=== PATIENT | female | born 1980 | race Caucasian/White ===

== ENCOUNTER 2016-05-14 03:09 | Emergency (ER) | payer MEDICAID ==
--- NOTE | 2016-05-14 03:32 | EDPHY ---
H & P Stated Complaint: SI - Personal History LMP (Females 10-55): 1-7 Days Ago Current Tetanus/Diphtheria Vaccine: Unsure Current Tetanus Diphtheria and Acellular Pertussis (TDAP): Unsure - Medical/Surgical History Hx Asthma: No Hx Chronic Respiratory Disease: No Hx Diabetes: No Hx Cardiac Disease: No Hx Renal Disease: No Hx Cirrhosis: No Hx Alcoholism: No Hx HIV/AIDS: No Hx Splenectomy or Spleen Trauma: No Other PMH: endometriosis, FRAN knee surgery, kidney stones, depression, anxiety, PTSD, borderline - Social History Smoking Status: Current every day smoker <Deven Berman - Last Filed: 05/14/16 07:09> <Kelsea Mane - Last Filed: 05/14/16 14:28> <Tabatha Morillo - Last Filed: 05/14/16 21:32> <Denice Rock - Last Filed: 05/15/16 06:50> <Morgan Brooks - Last Filed: 05/15/16 08:00> <Haydee Marroquin - Last Filed: 05/15/16 23:02> Time Seen by Provider: 05/14/16 03:14 HPI/ROS: Chief complaint: Suicidal HPI: 36-year-old woman being brought in by police department on a mental health hold. Patient states she was just discharged from [facility] yesterday evening. Patient states that she immediately began feeling suicidal. She states that there is some discussion with staff at [facility] about doing electroconvulsive therapy on her but then she was discharged to home. Patient was living in a domestic violence care home but is unable to go back there is now until she has been cleared for being suicidal. She currently is feeling hopeless with no place to go and has a plan to take all of her pills. Denies any ingestions. Is complaining of some mild nonproductive cough. Also complains some mild left ankle pain but she is ambulating without any difficulty. ROS: 10 point Review of Systems is negative except as noted in the HPI. Past medical history: Major depression Physical exam: Gen: Awake, Alert, flattened affect HEENT: Nose: no rhinorrhea Eyes: PERRLA, EOMI Mouth: Moist mucosa Neck: Supple, no JVD Chest: nontender, mild expiratory wheeze, no focal rales or rhonchi Heart: S1, S2 normal, no murmur Abd: Soft, non-tender, no guarding Back: no CVA tenderness, no midline tenderness Ext: no edema, mild left ankle tenderness just inferior to the medial malleolus. She is ambulating multiple steps without any difficulty. Skin: no rash Neuro: CN II-XII intact, Sensation grossly intact, Strength 5/5 in bilateral upper and lower extremities (Deven Berman) Constitutional: Initial Vital Signs Temperature (C) 36.9 C 05/14/16 03:22 Heart Rate 112 H 05/14/16 03:22 Respiratory Rate 16 05/14/16 03:22 Blood Pressure 127/92 H 05/14/16 03:22 O2 Sat (%) 93 05/14/16 03:22 O2 Delivery Mode Room Air Allergies/Adverse Reactions: aspirin Allergy (Verified 05/14/16 03:21) hydroxyzine HCl [From Vistaril] Allergy (Verified 05/14/16 03:21) hydroxyzine pamoate [From Vistaril] Allergy (Verified 05/14/16 03:21) latex Allergy (Verified 05/14/16 03:21) Home Medications: Medication Instructions Recorded Aripiprazole [Abilify] 7.5 mg PO DAILY 05/14/16 Gabapentin [Neurontin] 600 mg PO 08,11,14,17,20,23 05/14/16 MIRTAZAPINE [Remeron 7.5 mg] 7.5 mg PO HS 05/14/16 Methylphenidate HCl [Ritalin 20mg 20 mg PO TID@08,12,17 05/14/16 (*)] Penicillin V Potassium 500 mg PO TID 7 Days 05/14/16 Pregabalin [LYRICA] 100 mg PO TID@08,12,22 05/14/16 buPROPion XL [Wellbutrin Xl] 450 mg PO DAILY 05/14/16 clonazePAM [Klonopin (*)] 0.5 mg PO TID PRN 05/14/16 oxyCODONE/APAP 5/325 [Percocet 1 tab PO Q6 PRN 05/14/16 5/325 (*)] Medical Decision Making <Deven Berman - Last Filed: 05/14/16 07:09> <Feldhaus,Kelsea M - Last Filed: 05/14/16 14:28> <IliaTabatha S - Last Filed: 05/14/16 21:32> <Denice Rock - Last Filed: 05/15/16 06:50> <Morgan Brooks E - Last Filed: 05/15/16 08:00> <Haydee Marroquin S - Last Filed: 05/15/16 23:02> ED Course/Re-evaluation: Patient here after being released from [facility]. Patient's: To be suicidal with intent take her medications. Feels that she is unsafe to be discharged from [facility]. She has mild ankle tenderness but is ambulating and no evidence of fracture at this time. Also has a mild cough but no focal rales or rhonchi. Pt medically cleared. Urine tox noted positive for benzos, opiates, and marijuana. Awaiting mental health evaluation. Patient is on M1 hold by police. 0700 patient signed out to Dr. Mane pending mental health evaluation. ( Deven Berman) The patient was singed out to me by Dr. Berman at shift change. Mental health evaluation is pending. Patient was evaluated by mental health. She is agreeable to go to a CSU. She is on a mental health hold. 2:15 p.m.: The patient complains of left ankle pain and tooth pain. Patient rolled her left ankle. She states swelling has improved since last night. On exam she has tenderness to inferior to lateral malleoli. Tenderness at head of 5th metatarsal. Plan to wrap in CHAIM bandage. Pain to posterior right molar. She only has 1 molar on the bottom right. Her back last molar has decay. She has tenderness to percussion. No abscess. Patient was given penicillin 500 mg. She was written a script for penicillin 500 mg 3 times a day for the next 7 days. She may also take [place] as needed for severe tooth pain and ibuprofen for moderate pain. The patient was signed out to Dr. Joseph at shift change. Patient will go to CSU. Please note: Pharmacy has reconcile the patient's meds and she has been started on her psychiatric medications. (Kelsea Mane) 9pm: I assumed care from 9-11pm. Pt cooperative. Signed over to Dr. Rock at shift change. (Tabatha Morillo) 6:50 a.m.- The patient has been stable throughout the course of my shift and has been mostly sleeping. She is awaiting placement at a crisis stabilization unit. She will be signed out to the oncoming provider Dr. Brooks. (Denice Rock) Patient's care transferred to mt at 7:00 a.m.. The patient is awaiting placement with Psychiatry. She is currently sleeping. (Morgan Brooks) 1500: The patient is signed out to mt at change of shift by Dr. Morgan Brooks. Went evaluated the patient. She was stable with no new complaints. 2300: The patient is signed out to Dr. Rock at change of shift. Pt is stable. (Haydee Marroquin) - Data Points Laboratory Results: Laboratory Results 05/14/16 03:35 05/14/16 03:35 Medications Given: Discontinued Medications Aripiprazole (Abilify) 7.5 mg PO EDNOW ONE Stop: 05/14/16 13:38 Last Admin: 05/14/16 14:45 Dose: 7.5 mg Bupropion HCl (Wellbutrin Xl) 450 mg PO EDNOW ONE Stop: 05/14/16 13:41 Last Admin: 05/14/16 14:45 Dose: 450 mg Bupropion HCl (Wellbutrin Xl) 450 mg PO EDNOW ONE Stop: 05/15/16 09:19 Last Admin: 05/15/16 09:56 Dose: 450 mg Clonazepam (Klonopin) 0.5 mg PO EDNOW ONE Stop: 05/14/16 19:09 Last Admin: 05/14/16 19:42 Dose: 0.5 mg Clonazepam (Klonopin) 0.5 mg PO EDNOW ONE Stop: 05/15/16 02:02 Last Admin: 05/15/16 02:05 Dose: 0.5 mg Clonazepam (Klonopin) 0.5 mg PO EDNOW ONE Stop: 05/15/16 20:02 Last Admin: 05/15/16 20:19 Dose: 0.5 mg Gabapentin (Neurontin) 600 mg PO EDNOW ONE Stop: 05/14/16 13:39 Last Admin: 05/14/16 14:45 Dose: 600 mg Gabapentin (Neurontin) 600 mg PO EDNOW ONE Stop: 05/14/16 14:01 Last Admin: 05/14/16 14:46 Dose: 600 mg Gabapentin (Neurontin) 600 mg PO EDNOW ONE Stop: 05/14/16 17:05 Last Admin: 05/14/16 17:44 Dose: 600 mg Gabapentin (Neurontin) 600 mg PO EDNOW ONE Stop: 05/14/16 22:08 Last Admin: 05/14/16 23:05 Dose: 600 mg Gabapentin (Neurontin) 600 mg PO EDNOW ONE Stop: 05/15/16 09:19 Last Admin: 05/15/16 09:56 Dose: 600 mg Gabapentin (Neurontin) 600 mg PO EDNOW ONE Stop: 05/15/16 10:01 Last Admin: 05/15/16 10:39 Dose: Not Given Gabapentin (Neurontin) 1,200 mg PO EDNOW ONE Stop: 05/15/16 12:03 Last Admin: 05/15/16 12:30 Dose: 1,200 mg Gabapentin (Neurontin) 1,200 mg PO EDNOW ONE Stop: 05/15/16 12:31 Last Admin: 05/15/16 12:30 Dose: Not Given Gabapentin (Neurontin) 600 mg PO EDNOW ONE Stop: 05/15/16 16:24 Last Admin: 05/15/16 17:19 Dose: 600 mg Gabapentin (Neurontin) 600 mg PO EDNOW ONE Stop: 05/15/16 17:31 Last Admin: 05/15/16 17:30 Dose: 600 mg Gabapentin (Neurontin) 600 mg PO EDNOW ONE Stop: 05/15/16 20:02 Last Admin: 05/15/16 20:19 Dose: 600 mg Ibuprofen (Motrin) 600 mg PO EDNOW ONE Stop: 05/14/16 14:20 Last Admin: 05/14/16 14:46 Dose: 600 mg Ibuprofen (Motrin) 600 mg PO EDNOW ONE Stop: 05/15/16 00:18 Last Admin: 05/15/16 00:53 Dose: 600 mg Ibuprofen (Motrin) 600 mg PO EDNOW ONE Stop: 05/15/16 12:04 Last Admin: 05/15/16 12:30 Dose: 600 mg Methylphenidate HCl (Ritalin) 20 mg PO EDNOW ONE Stop: 05/14/16 13:39 Last Admin: 05/14/16 14:46 Dose: 20 mg Methylphenidate HCl (Ritalin) 20 mg PO EDNOW ONE Stop: 05/14/16 17:05 Last Admin: 05/14/16 17:45 Dose: 20 mg Methylphenidate HCl (Ritalin) 20 mg PO EDNOW ONE Stop: 05/15/16 22:10 Last Admin: 05/14/16 23:05 Dose: 20 mg Methylphenidate HCl (Ritalin) 20 mg PO EDNOW ONE Stop: 05/15/16 09:19 Last Admin: 05/15/16 09:57 Dose: 20 mg Methylphenidate HCl (Ritalin) 20 mg PO EDNOW ONE Stop: 05/15/16 12:03 Last Admin: 05/15/16 12:30 Dose: 20 mg Mirtazapine (Remeron) 7.5 mg PO EDNOW ONE Stop: 05/15/16 00:17 Last Admin: 05/15/16 00:53 Dose: 7.5 mg Oxycodone/Acetaminophen (Percocet 5/325) 1 tab PO EDNOW ONE Stop: 05/14/16 16:14 Last Admin: 05/14/16 16:31 Dose: 1 tab Oxycodone/Acetaminophen (Percocet 5/325) 1 tab PO EDNOW ONE Stop: 05/14/16 22:08 Last Admin: 05/14/16 23:05 Dose: 1 tab Oxycodone/Acetaminophen (Percocet 5/325) 1 tab PO EDNOW ONE Stop: 05/15/16 09:23 Last Admin: 05/15/16 09:57 Dose: 1 tab Oxycodone/Acetaminophen (Percocet 5/325) 2 tab PO EDNOW ONE Stop: 05/15/16 16:14 Last Admin: 05/15/16 16:21 Dose: 2 tab Penicillin V Potassium (Pen Vk) 500 mg PO EDNOW ONE PRN Reason: Protocol Stop: 05/14/16 14:20 Last Admin: 05/14/16 15:06 Dose: 500 mg Penicillin V Potassium (Pen Vk) 500 mg PO EDNOW ONE PRN Reason: Protocol Stop: 05/15/16 09:24 Last Admin: 05/15/16 09:57 Dose: 500 mg Penicillin V Potassium (Pen Vk) 500 mg PO EDNOW ONE PRN Reason: Protocol Stop: 05/15/16 13:38 Last Admin: 05/15/16 13:42 Dose: 500 mg Pregabalin (Lyrica) 100 mg PO EDNOW ONE Stop: 05/14/16 13:40 Last Admin: 05/14/16 14:46 Dose: 100 mg Pregabalin (Lyrica) 100 mg PO EDNOW ONE Stop: 05/15/16 22:10 Last Admin: 05/14/16 23:06 Dose: 100 mg Pregabalin (Lyrica) 100 mg PO EDNOW ONE Stop: 05/15/16 09:19 Last Admin: 05/15/16 09:57 Dose: 100 mg Pregabalin (Lyrica) 100 mg PO EDNOW ONE Stop: 05/15/16 12:03 Last Admin: 05/15/16 12:31 Dose: Not Given Pregabalin (Lyrica) 100 mg PO EDNOW ONE Stop: 05/15/16 12:31 Last Admin: 05/15/16 12:31 Dose: 100 mg Departure <Deven Berman J - Last Filed: 05/14/16 07:09> <Kelsea Mane - Last Filed: 05/14/16 14:28> <Tabatha Morillo S - Last Filed: 05/14/16 21:32> <Denice Rock - Last Filed: 05/15/16 06:50> <Morgan Brooks E - Last Filed: 05/15/16 08:00> <Haydee Marroquin S - Last Filed: 05/15/16 23:02> - Departure Disposition: Home, Routine, Self-Care Clinical Impression: Ankle sprain, Suicidal ideation Referrals: Patient,NotPresent [Unknown] - As per Instructions Prescriptions: Penicillin V Potassium 500 mg PO TID 7 Days Report Scribed for: Kelsea Mane Report Scribed by: Dianelys Meehan Date of Report: 05/14/16 Time of Report: 14:20 <Kelsea Mane - Last Filed: 05/14/16 14:28>
[2016-05-14 03:50] LABS: % IMMATURE GRANULYOCYTES 0.2 % (0.0-1.1); ABSOLUTE IMMATURE GRANULOCYTES 0.02 10^3/uL (0.00-0.10); ADD DIFF? NO; ADD MORPH? NO; ADD SCAN? NO; ATYPICAL LYMPHOCYTE FLAG 10 (0-99); FRAGMENT RBC FLAG 0 (0-99); HEMATOCRIT 39.8 % (38.0-47.0); HEMOGLOBIN 13.6 g/dL (12.6-16.3); LEFT SHIFT FLG 0 (0-99); LIPEMIA HEMOLYSIS FLAG 90 (0-99); MEAN CELL HEMOGLOBIN 29.9 pg (27.9-34.1); MEAN CELL HEMOGLOBIN CONCENTR. 34.2 g/dL (32.4-36.7); MEAN CELL VOLUME 87.5 fL (81.5-99.8); MEAN PLATELET VOLUME 10.1 fL (8.7-11.7); PLATELET CLUMPS FLAG 0 (0-99); PLATELET COUNT 223 10^3/uL (150-400); RED BLOOD CELL COUNT 4.55 10^6/uL (4.18-5.33); RED CELL DISTRIBUTION WIDTH 13.6 % (11.5-15.2)
[2016-05-14 04:01] LABS: ANION GAP 13 mEq/L (8-16); CALCIUM 9.2 mg/dL (8.5-10.4); CARBON DIOXIDE 21 mEq/l (22-31); CHLORIDE 106 mEq/L (97-110); CREATININE 0.8 mg/dL (0.6-1.0); ETHANOL SERUM < 10 mg/dL (0-10); GLOMERULAR FILTRATION RATE > 60; GLUCOSE 98 mg/dL (70-100); POTASSIUM 3.9 mEq/L (3.5-5.2); SODIUM 140 mEq/L (134-144)
[2016-05-14] MEDS ORDERED: ARIPiprazole 5 MG TAB PO ONE (13:37)
[2016-05-14] MEDS ORDERED: GABAPENTIN 400 MG CAP PO ONE (13:38)
[2016-05-14] MEDS ORDERED: PREGABALIN 100 MG CAP PO ONE (13:39)
[2016-05-14] MEDS ORDERED: buPROPion XL 150 MG TAB PO ONE (13:40)
[2016-05-14] MEDS ORDERED: GABAPENTIN 300 MG CAP PO ONE ×4 (14:00→22:07)
[2016-05-14] MEDS ORDERED: PENICILLIN VK 500 MG TAB PO ONE (14:19)
[2016-05-14] MEDS ORDERED: IBUPROFEN 600 MG TAB PO ONE (14:19)
[2016-05-14] MEDS ORDERED: OXYCODONE/APAP 5/325 TAB PO ONE ×2 (16:13→22:07)
[2016-05-14] MEDS ORDERED: clonazePAM 0.5 MG TAB PO ONE (19:08)
[2016-05-14] MEDS: PREGABALIN 100 MG CAP PO ONE (23:06)
[2016-05-15] MEDS ORDERED: IBUPROFEN 600 MG TAB PO ONE ×3 (00:13→12:03)
[2016-05-15] MEDS ORDERED: MIRTAZAPINE 15 MG TAB PO ONE ×2 (00:16→22:40)
[2016-05-15] MEDS ORDERED: PENICILLIN VK 250 MG TAB ONE ×2 (00:55→13:39)
[2016-05-15] MEDS ORDERED: clonazePAM 0.5 MG TAB PO ONE ×3 (02:01→22:40)
[2016-05-15] MEDS ORDERED: GABAPENTIN 400 MG CAP PO ONE ×2 (09:18→12:30)
[2016-05-15] MEDS ORDERED: PREGABALIN 100 MG CAP PO ONE ×2 (09:18→12:30)
[2016-05-15] MEDS ORDERED: buPROPion XL 150 MG TAB PO ONE (09:18)
[2016-05-15] MEDS ORDERED: OXYCODONE/APAP 5/325 TAB PO ONE ×3 (09:22→23:59)
[2016-05-15] MEDS ORDERED: PENICILLIN VK 500 MG TAB PO ONE ×2 (09:23→13:37)
[2016-05-15] MEDS ORDERED: GABAPENTIN 300 MG CAP PO ONE ×6 (10:00→23:30)
[2016-05-15] MEDS ORDERED: PREGABALIN 75 MG CAP PO ONE (12:02)
[2016-05-15] MEDS ORDERED: GABAPENTIN 100 MG CAP PO ONE (12:02)
[2016-05-15] MEDS ORDERED: clonazePAM 0.5 MG TAB ONE (19:53)
[2016-05-15] MEDS ORDERED: GABAPENTIN 300 MG CAP ONE (19:53)
[2016-05-15] MEDS ORDERED: OXYCODONE/APAP 5/325 TAB ONE (23:39)
[2016-05-15] MEDS: PREGABALIN 100 MG CAP PO ONE (23:58)
[2016-05-16] MEDS ORDERED: clonazePAM 0.5 MG TAB PO PRN (07:54)
[2016-05-16] MEDS ORDERED: OXYCODONE/APAP 5/325 TAB PO PRN (07:57)
[2016-05-16] MEDS ORDERED: buPROPion XL 150 MG TAB PO SCH (09:00)
[2016-05-16] MEDS ORDERED: GABAPENTIN 300 MG CAP PO SCH (09:00)
[2016-05-16] MEDS ORDERED: GABAPENTIN 400 MG CAP PO SCH (09:00)
[2016-05-16] MEDS ORDERED: PREGABALIN 100 MG CAP PO SCH (09:00)
[2016-05-16] MEDS ORDERED: ARIPiprazole 5 MG TAB PO SCH (09:00)
[2016-05-16] MEDS: PENICILLIN VK 500 MG TAB PO SCH ×2 (09:00→15:37)
[2016-05-16 09:26] VITALS: BP 137/75; PULSE 85; TEMP 98.6; O2SAT 96
[2016-05-16] MEDS ORDERED: traMADol 50 MG TAB PO ONE (11:46)
[2016-05-16] MEDS ORDERED: IBUPROFEN 600 MG TAB PO ONE (11:46)
[2016-05-16] MEDS ORDERED: GABAPENTIN 400 MG CAP PO ONE (12:30)
[2016-05-16] MEDS ORDERED: PENICILLIN VK 250 MG TAB ONE (15:25)
[2016-05-16 15:38] VITALS: RESP 16
[2016-05-17] MEDS ORDERED: GABAPENTIN 100 MG CAP PO ONE (11:29)
== END 2016-05-16 16:02 | disposition home or self-care (01) ==
DX: R45.851 Suicidal ideations (principal); S93.402A Sprain of unspecified ligament of left ankle, initial encounter; F17.200 Nicotine dependence, unspecified, uncomplicated; X58.XXXA Exposure to other specified factors, initial encounter
CPT/HCPCS: 80305; G0480